=== PATIENT | female | born 1990 | race African-American/Black ===

== ENCOUNTER 2017-01-22 05:32 | Emergency (ER) | payer OTHER ==
[~2017-01-22] VITALS: Ht 157.5 cm; Wt 63.5 kg
[~2017-01-22 05:32] MED LIST: ACET50TA PO; IBUP80TA PO; VITAPRTA PO
[2017-01-22 05:36] VITALS: BP 115/61
[2017-01-22] MEDS ORDERED: ZITHTAB PO (05:55)
== END 2017-01-22 06:12 | disposition home or self-care (01) ==
LOC: M ED 06:10
DX: J02.9 Acute pharyngitis, unspecified (principal)